=== PATIENT | female | born 1955 | race African-American/Black ===

== ENCOUNTER 2017-04-05 11:43 | Emergency (ER) | payer BC ==
[~2017-04-05] VITALS: Ht 157.5 cm; Wt 57.1 kg
[~2017-04-05 11:43] MED LIST: NAPROSYN500 MG PO
[2017-04-05] MEDS ORDERED: ULTRAM 50MG TAB50 MG PO (12:37)
[2017-04-05] MEDS ORDERED: MOBIC15 MG PO (12:37)
[2017-04-05 13:03] VITALS: BP 142/55
== END 2017-04-05 13:03 | disposition home or self-care (01) ==
LOC: ER 11:43
DX: M25.561 Pain in right knee (principal); J45.909 Unspecified asthma, uncomplicated